=== PATIENT | female | born 1995 | race African-American/Black ===

== ENCOUNTER 2016-06-30 14:06 | Outpatient (CLI) | payer MEDICAID | END 2016-06-30 14:07 | disposition home or self-care (01) | DX: Z36 Encounter for antenatal screening of mother (principal) ==

== ENCOUNTER 2016-07-25 23:40 | Inpatient (IN) | payer MEDICAID ==
[2016-07-26] MEDS ORDERED: SODIUM CHLORIDE FLUSH 0.9% 10 ML SYRINGE IVP ONE ×3 (00:52→20:20)
[2016-07-26] MEDS ORDERED: TERBUTALINE 1 MG/ML VIAL SUBQ ONE (02:03)
[2016-07-26] MEDS: LACTATED RINGERS 1,000 ML IV SCH ×2 (02:57→03:34)
[2016-07-26] MEDS ORDERED: CITRIC ACID/SODIUM CITRATE 15 ML UDC PO ONE (03:09)
[2016-07-26] MEDS ORDERED: LACTATED RINGERS 1,000 ML IV ONE ×2 (04:56→05:25)
[2016-07-26] MEDS ORDERED: MORPHINE PF 5 MG/10 ML AMP EP ONE (05:00)
[2016-07-26] MEDS ORDERED: OXYTOCIN 10 UNIT/ML VIAL IV ONE (05:00)
[2016-07-26] MEDS ORDERED: fentaNYL 250 MCG/5 ML VIAL IVP ONE (05:00)
[2016-07-26] MEDS ORDERED: ONDANSETRON 4 MG/2 ML VIAL IVP ONE (05:00)
[2016-07-26] MEDS ORDERED: KETOROLAC 30 MG/ML VIAL IVP ONE (05:00)
[2016-07-26] MEDS ORDERED: ONDANSETRON 4 MG/2 ML VIAL IVP PRN (05:29)
[2016-07-26] MEDS ORDERED: METOCLOPRAMIDE 10 MG/2 ML VIAL IVP PRN (05:29)
[2016-07-26] MEDS ORDERED: LACTATED RINGERS 1,000 ML IV SCH (06:00)
[2016-07-26] MEDS ORDERED: OXYTOCIN/LACTATED RINGERS 250 ML IV ONE (06:32)
[2016-07-26] MEDS: diphenhydrAMINE INJ 50 MG/ML VIAL IV PRN ×2 (06:41→07:14)
[2016-07-26] MEDS: NALBUPHINE 20 MG/ML AMP IVP PRN ×4 (08:10→20:24)
[2016-07-26] MEDS: OXYTOCIN/LACTATED RINGERS 250 ML IV SCH ×2 (11:42→16:47)
[2016-07-26] MEDS ORDERED: oxyCODONE 5 MG TABLET PO PRN (12:28)
[2016-07-26] MEDS: IBUPROFEN 600 MG TABLET PO SCH ×2 (12:54→17:39)
[2016-07-27] MEDS: IBUPROFEN 600 MG TABLET PO SCH ×6 (00:01→18:56)
[2016-07-27] MEDS: NALBUPHINE 20 MG/ML AMP IVP PRN ×2 (01:32→08:12)
[2016-07-27] MEDS: oxyCODONE 5 MG TABLET PO PRN ×5 (06:31→23:10)
[2016-07-27] MEDS ORDERED: SODIUM CHLORIDE FLUSH 0.9% 10 ML SYRINGE IVP ONE (08:08)
[2016-07-27] MEDS: MAGNESIUM HYDROXIDE 2,400 MG/30 ML UDC PO PRN (08:52)
[2016-07-27] MEDS: diphenhydrAMINE 25 MG CAPSULE PO PRN (16:56)
[2016-07-27] MEDS: DOCUSATE SODIUM 100 MG CAPSULE PO SCH (19:59)
[2016-07-28] MEDS: IBUPROFEN 600 MG TABLET PO SCH ×3 (01:03→13:52)
[2016-07-28] MEDS: oxyCODONE 5 MG TABLET PO PRN ×4 (03:29→15:55)
[2016-07-28] MEDS: DOCUSATE SODIUM 100 MG CAPSULE PO SCH (08:26)
[2016-07-28] MEDS: diphenhydrAMINE 25 MG CAPSULE PO PRN (08:50)
[2016-07-28] MEDS ORDERED: SIMETHICONE CHEW 80 MG TABLET PO PRN (13:12)
[2016-07-28] MEDS: MAGNESIUM HYDROXIDE 2,400 MG/30 ML UDC PO PRN (13:52)
== END 2016-07-28 18:50 | disposition home or self-care (01) | DRG 766 ==
PROC: 10H07YZ Insertion of Other Device into Products of Conception, Via Natural or Artificial Opening (ICD-10-PCS; principal; 2016-07-26 03:04)
PROC: 10D00Z1 Extraction of Products of Conception, Low, Open Approach (ICD-10-PCS; principal; 2016-07-26 03:04)
DX: O77.0 Labor and delivery complicated by meconium in amniotic fluid (principal); O76 Abnormality in fetal heart rate and rhythm complicating labor and delivery; O69.0XX0 Labor and delivery complicated by prolapse of cord, not applicable or unspecified; O36.8130 Decreased fetal movements, third trimester, not applicable or unspecified; O99.02 Anemia complicating childbirth; D64.9 Anemia, unspecified; Z3A.40 40 weeks gestation of pregnancy; Z37.0 Single live birth

== ENCOUNTER 2016-08-12 23:13 | Emergency (ER) | payer MEDICAID | END 2016-08-13 05:27 | disposition home or self-care (01) | DX: R50.9 Fever, unspecified (principal); R10.32 Left lower quadrant pain ==

== ENCOUNTER 2017-06-25 16:11 | Outpatient (CLI) | payer MEDICAID | END 2017-06-25 16:12 | disposition home or self-care (01) | LOC: LAB.R 16:11 | PROVIDERS: ATTEND Registered Nurse | DX: N76.1 Subacute and chronic vaginitis (principal) ==

== ENCOUNTER 2017-06-29 14:21 | Outpatient (CLI) | payer MEDICAID ==
[2017-07-01 18:35] LABS: HSV 2 DNA NOT DETECTED; SOURCE BLOOD
== END 2017-06-29 14:22 | disposition home or self-care (01) ==
LOC: LAB 14:21
PROVIDERS: ATTEND Registered Nurse
DX: N76.1 Subacute and chronic vaginitis (principal)
CPT/HCPCS: 36415; 87529

== ENCOUNTER 2017-07-05 15:32 | Emergency (ER) | payer MEDICAID ==
[2017-07-05 16:01] LABS: BILIRUBIN,URINE NEGATIVE (NEGATIVE); GLUCOSE, URINE (UA) NEGATIVE (NEGATIVE); KETONES,URINE (UA) TRACE mg/dL (NEGATIVE); LEUKOCYTE ESTERASE, URINE LARGE (NEGATIVE); NITRITE,URINE NEGATIVE (NEGATIVE); OCCULT BLOOD,URINE LARGE (NEGATIVE); PH,URINE 6.5 PH (5.0-7.5); PROTEIN,URINE 30 mg/dL (NEGATIVE); UROBILINOGEN,URINE 0.2 (NORMAL) E.U./dL (NORMAL)
[2017-07-05 16:04] LABS: CLARITY,URINE CLOUDY (CLEAR); HCG UR QUAL NEGATIVE
[2017-07-05 16:19] LABS: BACTERIA,URINE Few /HPF (None Seen); MUCUS,URINE Moderate Strands; RBC,URINE TNTC /HPF (0-5); SQUAMOUS EPITHELIAL CELL,UR MOD Squamous (<= Few); WBC CLUMPS,URINE PRESENT
[2017-07-05] MEDS ORDERED: levoFLOXacin 250 MG TABLET PO STA (17:13)
--- NOTE | 2017-07-05 17:15 | ED Physician Documentation ---
History of Present Illness - Stated complaint Stated Complaint: FEM - Chief complaint Chief Complaint: General - History obtained from History obtained from: Patient - History of Present Illness Timing: Other (1 day of burning and dysuria and frequency without flank pain or fevers or nausea.) Review of Systems Constitutional: denies: Fever, Chills Respiratory: denies: Dyspnea, Cough GI: denies: Abdominal Pain, Nausea, Vomiting, Diarrhea PD PAST MEDICAL HISTORY - Past Medical History Cardiovascular: None Respiratory: None Endocrine/Autoimmune: None GI: None : None HEENT: None Psych: None Musculoskeletal: None Derm: None - Past Surgical History Past Surgical History: No Ortho: 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 - Present Medications Home Medications: Ambulatory Orders Medication Instructions Recorded Confirmed Levofloxacin [Levaquin] 250 mg PO DAILY #3 tablet 07/05/17 Voriconazole [Vfend] 200 mg PO BID 07/05/17 07/05/17 - Allergies Allergies/Adverse Reactions: Allergies Allergy/AdvReac Type Severity Reaction Status Date / Time No Known Drug Allergies Allergy Verified 07/05/17 15:51 - Social History Does the pt smoke?: No Smoking Status: Never smoker Does the pt drink ETOH?: No Does the pt have substance abuse?: No - Immunizations Immunizations are current?: Yes - POLST Patient has POLST: No PD ED PE NORMAL - Vitals Vital signs reviewed: Yes - General General: Alert and oriented X 3, No acute distress - Abdomen Abdomen: Soft, Non tender - Back Back: No CVA TTP - Neuro Neuro: Alert and oriented X 3, Normal speech - Psych Psych: Normal mood, Normal affect Results - Vitals Vitals: Vital Signs - 24 hr 07/05/17 15:48 Temperature 36.9 C Heart Rate 88 Respiratory 16 Rate Blood Pressure 105/70 O2 Saturation 98 Oxygen O2 Source Room air - Labs Labs: Laboratory Tests 07/05/17 15:55 Urine Color YELLOW Urine Clarity CLOUDY Urine pH 6.5 Ur Specific [place] 1.025 Urine Protein 30 H Urine Glucose (UA) NEGATIVE Urine Ketones TRACE Urine Occult Blood LARGE H Urine Nitrite NEGATIVE Urine Bilirubin NEGATIVE Urine Urobilinogen 0.2 (NORMAL) Ur Leukocyte Esterase LARGE H Urine RBC TNTC H Urine WBC >25 H Urine WBC Clumps PRESENT Ur Squamous Epith Cells MOD Squamous H Urine Bacteria Few Urine Mucus Moderate Strands Ur Microscopic Review INDICATED Urine Culture Comments NOT INDICATED Urine HCG, Qual NEGATIVE PD MEDICAL DECISION MAKING - ED course ED course: She wanted a qday abx d/t no pharmacies open today. Departure - Departure Disposition: 01 Home, Self Care Clinical Impression: Cystitis Condition: Good Record reviewed to determine appropriate education?: Yes Instructions: ED UTI Cystitis Female Prescriptions: Levofloxacin [Levaquin] 250 mg PO DAILY #3 tablet Comments: Return if worse, especially if you develop increasing flank pain, fevers, or cannot keep down the medication.
[2017-07-05 17:42] VITALS: BP 108/72
== END 2017-07-05 17:30 | disposition home or self-care (01) ==
LOC: ED 15:32
DX: N30.90 Cystitis, unspecified without hematuria (principal)
CPT/HCPCS: 81001; 81025; 99283; A9270; 81003; 87086

== ENCOUNTER 2017-07-07 18:38 | Outpatient (CLI) | payer MEDICAID | END 2017-07-07 18:39 | disposition home or self-care (01) | LOC: LAB.R 18:38 | PROVIDERS: ATTEND Registered Nurse | DX: N76.1 Subacute and chronic vaginitis (principal); R80.9 Proteinuria, unspecified | CPT/HCPCS: 87086 ==

== ENCOUNTER 2017-07-13 13:14 | Outpatient (CLI) | payer MEDICAID ==
[2017-07-15 11:27] LABS: HSV 1 IGG TYPE SPECIFIC AB 10.2 index; HSV 2 IGG TYPE SPECIFIC AB 4.78 index
== END 2017-07-13 13:15 | disposition home or self-care (01) ==
LOC: LAB 13:14
PROVIDERS: ATTEND Registered Nurse
DX: N76.1 Subacute and chronic vaginitis (principal)
CPT/HCPCS: 36415; 81599; 86695; 86696

== ENCOUNTER 2017-08-06 08:00 | Outpatient (CLI) | payer MEDICAID | END 2017-08-06 08:01 | disposition home or self-care (01) | LOC: LAB.R 08:00 | PROVIDERS: ATTEND Registered Nurse | DX: R30.0 Dysuria (principal) | CPT/HCPCS: 87086; 87491; 87591 ==

== ENCOUNTER 2017-09-26 17:41 | Emergency (ER) | payer MEDICAID ==
[2017-09-26 18:12] LABS: BILIRUBIN,URINE NEGATIVE (NEGATIVE); GLUCOSE, URINE (UA) 100 mg/dL (NEGATIVE); KETONES,URINE (UA) TRACE mg/dL (NEGATIVE); LEUKOCYTE ESTERASE, URINE LARGE (NEGATIVE); NITRITE,URINE POSITIVE (NEGATIVE); OCCULT BLOOD,URINE LARGE (NEGATIVE); PH,URINE 5.5 PH (5.0-7.5); PROTEIN,URINE 30 mg/dL (NEGATIVE); UROBILINOGEN,URINE 2 E.U./dL (NORMAL)
--- NOTE | 2017-09-26 18:17 | ED Physician Documentation ---
PD HPI FEMALE - Stated complaint Stated Complaint: FEMALE - Chief complaint Chief Complaint: UTI - History obtained from History obtained from: Patient - History of Present Illness Timing - onset: Other (Few days of dysuria associated with hematuria and frequency, she has a history of UTIs. No flank pain or nausea. 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, Dilation and currettage - Present Medications Home Medications: Ambulatory Orders Medication Instructions Recorded Confirmed Phenazopyridine HCl [Pyridium] 200 mg PO TID #6 tablet 09/26/17 Sulfamethoxazole/Trimethoprim 1 each PO BID 5 Days #10 tablet 09/26/17 [Sulfamethoxazole-Tmp Ds Tablet] - Allergies Allergies/Adverse Reactions: Allergies Allergy/AdvReac Type Severity Reaction Status Date / Time No Known Drug Allergies Allergy Verified 09/26/17 17:49 - Social History Does the pt smoke?: No Smoking Status: Never smoker Does the pt drink ETOH?: Yes Does the pt have substance abuse?: No - Immunizations Immunizations are current?: Yes - POLST Patient has POLST: No PD ED PE NORMAL - Vitals Vital signs reviewed: Yes - General General: Alert and oriented X 3, No acute distress - Abdomen Abdomen: Normal bowel sounds, Soft, Non tender - Back Back: No CVA TTP, No spinal TTP - Neuro Neuro: Alert and oriented X 3, Normal speech - Psych Psych: Normal mood, Normal affect Results - Vitals Vitals: Vital Signs - 24 hr 09/26/17 17:45 Temperature 36.6 C Heart Rate 70 Respiratory 14 Rate Blood Pressure 118/71 O2 Saturation 99 Oxygen O2 Source Room air - Labs Labs: Laboratory Tests 09/26/17 18:04 Urine Color ORANGE Urine Clarity CLEAR Urine pH 5.5 Ur Specific [place] 1.025 Urine Protein 30 H Urine Glucose (UA) 100 H Urine Ketones TRACE Urine Occult Blood LARGE H Urine Nitrite POSITIVE H Urine Bilirubin NEGATIVE Urine Urobilinogen 2 H Ur Leukocyte Esterase LARGE H Urine RBC 11-25 H Urine WBC >25 H Ur Squamous Epith Cells FEW Squamous Urine Bacteria Few Ur Microscopic Review INDICATED Urine Culture Comments INDICATED Urine HCG, Qual NEGATIVE Departure - Departure Disposition: 01 Home, Self Care Clinical Impression: Cystitis Condition: Good Record reviewed to determine appropriate education?: Yes Instructions: ED UTI Cystitis Female Prescriptions: Phenazopyridine HCl [Pyridium] 200 mg PO TID #6 tablet Sulfamethoxazole/Trimethoprim [Sulfamethoxazole-Tmp Ds Tablet] 1 each PO BID 5 Days #10 tablet Comments: Call your doctor to arrange a follow-up appointment, make the next available appointment. In the interim, return anytime if worse or if new symptoms develop. We will culture your urine, the results should be done in 48-72 hours. If an antibiotic change is necessary we will call you. Return if worse in the meantime, especially if you develop increasing flank pain, fevers, or cannot keep down the medication.
[2017-09-26 18:19] LABS: CLARITY,URINE CLEAR (CLEAR); HCG UR QUAL NEGATIVE
[2017-09-26 18:23] LABS: BACTERIA,URINE Few /HPF (None Seen); SQUAMOUS EPITHELIAL CELL,UR FEW Squamous (<= Few)
[2017-09-26] MEDS ORDERED: SULFAMETH/TRIMETH DS 800/160 MG TABLET PO STA (18:31)
[2017-09-26 18:48] VITALS: BP 115/65
== END 2017-09-26 18:48 | disposition home or self-care (01) ==
LOC: ED 17:41
DX: N30.90 Cystitis, unspecified without hematuria (principal)
CPT/HCPCS: 81001; 81025; 87086; 99283; A9270; 81003

== ENCOUNTER 2017-12-21 08:00 | Outpatient (CLI) | payer MEDICAID ==
[2017-12-21 18:53] LABS: BUN - BLOOD UREA NITROGEN 14 mg/dL (6-20); CALCIUM 8.7 mg/dL (8.5-10.3); CARBON DIOXIDE - CO2 26 mmol/L (21-32); CHLORIDE 102 mmol/L (101-111); CREATININE 0.9 mg/dL (0.4-1.0); GFR - MDRD 93 (>89); GLUCOSE 98 mg/dL (70-100); SODIUM 136 mmol/L (135-145)
[2017-12-21 19:02] LABS: BASOPHILS % (AUTO) 0.5 %; EOSINOPHILS # (AUTO) 0.1 10^3/uL (0.0-0.7); EOSINOPHILS % (AUTO) 1.9 %; HGB - HEMOGLOBIN 12.3 g/dL (12.0-16.0); LYMPHOCYTES % (AUTO) 45.6 %; MEAN CORPUSCULAR HEMOGLOBIN 28.6 pg (27.0-31.0); MEAN CORPUSCULAR HGB CONC 31.9 g/dL (32.0-36.0); MEAN CORPUSCULAR VOLUME 89.8 fL (81.0-99.0); MONOCYTES # (AUTO) 0.3 10^3/uL (0.0-1.0); MONOCYTES % (AUTO) 6.1 %; NEUTROPHILS % (AUTO) 45.9 %; PLT - PLATELET COUNT 254 10^3/uL (130-450); RED BLOOD COUNT 4.29 10^6/uL (4.20-5.40); WHITE BLOOD COUNT 4.4 x10^3/uL (4.8-10.8)
== END 2017-12-21 08:01 | disposition home or self-care (01) ==
LOC: LAB.N 08:00
PROVIDERS: ATTEND Physician Assistant Medical
DX: Z00.00 Encounter for general adult medical examination without abnormal findings (principal); D64.9 Anemia, unspecified; N30.90 Cystitis, unspecified without hematuria
CPT/HCPCS: 36415; 80048; 84443; 85025

== ENCOUNTER 2018-03-15 08:00 | Outpatient (CLI) | payer MEDICAID | END 2018-03-15 08:01 | disposition home or self-care (01) | LOC: LAB.R 08:00 | PROVIDERS: ATTEND Nurse Practitioner Obstetrics & Gynecology | DX: Z11.3 Encounter for screening for infections with a predominantly sexual mode of transmission (principal) | CPT/HCPCS: 87491; 87591 ==

== ENCOUNTER 2018-04-05 08:00 | Outpatient (CLI) | payer MEDICAID | END 2018-04-05 08:01 | disposition home or self-care (01) | LOC: LAB.R 08:00 | PROVIDERS: ATTEND Registered Nurse | DX: Z11.3 Encounter for screening for infections with a predominantly sexual mode of transmission (principal) | CPT/HCPCS: 87491; 87591 ==

== ENCOUNTER 2018-06-25 20:34 | Emergency (ER) | payer MEDICAID ==
[2018-06-25 20:54] VITALS: BP 111/71
--- NOTE | 2018-06-25 21:13 | ED Physician Documentation ---
PD HPI FEMALE - Stated complaint Stated Complaint: FEMALE - Chief complaint Chief Complaint: UTI - History obtained from History obtained from: Patient - History of Present Illness Timing - onset: Other (Urinary frequency and dysuria mostly tonight without flank pain or fevers.) Review of Systems Constitutional: denies: Fever, Chills GI: reports: Nausea. 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 - Present Medications Home Medications: Ambulatory Orders Medication Instructions Recorded Confirmed Acyclovir 500 mg PO DAILY 06/25/18 06/25/18 Nitrofurantoin Monohyd/M-Cryst 100 mg PO BID #10 capsule 06/25/18 [Macrobid 100 mg Capsule] - Allergies Allergies/Adverse Reactions: Allergies Allergy/AdvReac Type Severity Reaction Status Date / Time No Known Drug Allergies Allergy Verified 06/25/18 20:50 - Social History Does the pt smoke?: No Smoking Status: Never smoker Does the pt drink ETOH?: Yes Does the pt have substance abuse?: No - Immunizations Immunizations are current?: Yes - POLST Patient has POLST: No PD ED PE NORMAL - Vitals Vital signs reviewed: Yes - General General: Alert and oriented X 3, No acute distress - Abdomen Abdomen: Normal bowel sounds, Soft, Non tender - Back Back: No CVA TTP - Neuro Neuro: Alert and oriented X 3, Normal speech Results - Vitals Vitals: Vital Signs - 24 hr 06/25/18 20:48 Temperature 36.6 C Heart Rate 73 Respiratory 16 Rate Blood Pressure 111/71 O2 Saturation 100 Oxygen O2 Source Room air - Labs Labs: Laboratory Tests 06/25/18 20:40 Urine Color YELLOW Urine Clarity CLEAR Urine pH 5.5 Ur Specific [place] >=1.030 H Urine Protein NEGATIVE Urine Glucose (UA) NEGATIVE Urine Ketones NEGATIVE Urine Occult Blood TRACE-INTA Urine Nitrite POSITIVE H Urine Bilirubin NEGATIVE Urine Urobilinogen 1 (NORMAL) Ur Leukocyte Esterase TRACE H Ur Microscopic Review INDICATED Urine Culture Comments Not Reportable Urine HCG, Qual NEGATIVE Departure - Departure Disposition: Home, Self Care Clinical Impression: Cystitis Condition: Good Record reviewed to determine appropriate education?: Yes Instructions: ED UTI Cystitis Female Prescriptions: Nitrofurantoin Monohyd/M-Cryst [Macrobid 100 mg Capsule] 100 mg PO BID #10 capsule Comments: We will culture your urine, the results should be done in 48-72 hours. If an antibiotic change is necessary we will call you. Return if worse in the meantime, especially if you develop increasing flank pain, fevers, or cannot keep down the medication.
[2018-06-25 21:24] LABS: BILIRUBIN,URINE NEGATIVE (NEGATIVE); GLUCOSE, URINE (UA) NEGATIVE (NEGATIVE); KETONES,URINE (UA) NEGATIVE (NEGATIVE); LEUKOCYTE ESTERASE, URINE TRACE (NEGATIVE); NITRITE,URINE POSITIVE (NEGATIVE); OCCULT BLOOD,URINE TRACE-INTA (NEGATIVE); PH,URINE 5.5 PH (5.0-7.5); PROTEIN,URINE NEGATIVE (NEGATIVE); UROBILINOGEN,URINE 1 (NORMAL) E.U./dL (NORMAL)
[2018-06-25 21:26] LABS: CLARITY,URINE CLEAR (CLEAR)
[2018-06-25 21:27] LABS: HCG UR QUAL NEGATIVE
[2018-06-25] MEDS ORDERED: NITROFURANTOIN MACRO 100 MG CAPSULE PO STA (21:28)
[2018-06-25 21:38] LABS: BACTERIA,URINE Few /HPF (None Seen); RBC,URINE 0-5 /HPF (0-5); SQUAMOUS EPITHELIAL CELL,UR MANY Squamous (<= Few)
== END 2018-06-25 21:35 | disposition home or self-care (01) ==
LOC: ED 20:34
DX: N30.90 Cystitis, unspecified without hematuria (principal)
CPT/HCPCS: 81001; 81025; 87086; 99283; A9270; 81003

== ENCOUNTER 2018-08-31 08:00 | Outpatient (CLI) | payer MEDICAID ==
[2018-08-31 20:04] LABS: BILIRUBIN,URINE NEGATIVE (NEGATIVE); GLUCOSE, URINE (UA) NEGATIVE (NEGATIVE); KETONES,URINE (UA) NEGATIVE (NEGATIVE); LEUKOCYTE ESTERASE, URINE NEGATIVE (NEGATIVE); NITRITE,URINE NEGATIVE (NEGATIVE); OCCULT BLOOD,URINE NEGATIVE (NEGATIVE); PH,URINE 6.5 PH (5.0-7.5); PROTEIN,URINE NEGATIVE (NEGATIVE); UROBILINOGEN,URINE 0.2 (NORMAL) E.U./dL (NORMAL)
[2018-08-31 20:34] LABS: CLARITY,URINE CLEAR (CLEAR); RBC,URINE 0-5 /HPF (0-5)
[2018-08-31 20:35] LABS: BACTERIA,URINE None Seen /HPF (None Seen); SQUAMOUS EPITHELIAL CELL,UR MANY Squamous (<= Few)
== END 2018-08-31 23:59 | disposition home or self-care (01) ==
LOC: LAB.R 08:00
PROVIDERS: ATTEND Physician Assistant Medical
DX: Q64.9 Congenital malformation of urinary system, unspecified (principal)
CPT/HCPCS: 81001; 87086

== ENCOUNTER 2018-09-28 21:18 | Outpatient (CLI) | payer MEDICAID ==
--- NOTE | 2018-09-28 22:50 | Ultrasound Report ---
Reason: PELVIC PAIN Procedure Date: 09/28/2018 Accession Number: [id number] / [id number] Procedure: US - Pelvic w/Transvaginal CPT Code: FULL RESULT: EXAM: PELVIC ULTRASOUND EXAM DATE: 09/28/2018 09:46 PM. CLINICAL HISTORY: PELVIC PAIN. COMPARISON: None. TECHNIQUE: Realtime transabdominal pelvic scan performed to identify the uterus and adnexa and as an overview of other pelvic structures, followed by transvaginal scan to provide greater detail of the uterus and adnexa, with static image documentation. FINDINGS: Uterus: 9.0 x 4.4 x 6.2 cm, volume 128 cc. Anteverted position. Normal overall size and echotexture. Masses: None. Endometrium: 8 mm. Normal. Cervix: Small amount of fluid in the endocervical canal. Right Ovary: 5.1 x 3.1 x 3.4 cm, volume 29 cc. Complex cyst measuring 3.2 x 2.9 x 2.7 cm. Normal Doppler flow signal. Left Ovary: 3.9 x 2.4 x 2.7 cm, volume 13 cc. Small cyst measuring 2.1 x 1.3 x 2.0 cm. Normal Doppler flow signal. Free Fluid: None. Other: None. IMPRESSION: 1. Enlarged right ovary measuring 29 cc with mildly complex, presumably hemorrhagic cyst measuring 3 cm. No torsion seen. 2. Mildly prominent left ovary measuring 13 cc with small cyst measuring 2 cm. No torsion seen. [facility]
== END 2018-09-28 21:19 | disposition home or self-care (01) ==
LOC: DI 21:18
PROVIDERS: ATTEND Registered Nurse
DX: N83.291 Other ovarian cyst, right side (principal); N83.202 Unspecified ovarian cyst, left side
CPT/HCPCS: 76830; 76856

== ENCOUNTER 2018-11-15 15:18 | Outpatient (CLI) | payer MEDICAID ==
--- NOTE | 2018-11-16 00:51 | Ultrasound Report ---
Reason: PELVIC PAIN Procedure Date: 11/15/2018 Accession Number: [id number] / [id number] Procedure: US - Pelvic w/Transvaginal CPT Code: FULL RESULT: EXAM: PELVIC ULTRASOUND EXAM DATE: 11/15/2018 04:15 PM. CLINICAL HISTORY: PELVIC PAIN. COMPARISON: PELVIC W/TRANSVAGINAL 09/28/2018 9:27 PM. TECHNIQUE: Realtime transabdominal pelvic scan performed to identify the uterus and adnexa and as an overview of other pelvic structures, followed by transvaginal scan to provide greater detail of the uterus and adnexa, with static image documentation. FINDINGS: Uterus: 8.5 x 3.9 x 5.2 cm, volume 90.2 cc. Anteverted position. Normal overall size and echotexture. Masses: None. Endometrium: 3 mm. No focal endometrial abnormalities. Cervix: Unremarkable. Right Ovary: 3.2 x 2.0 x 1.8 cm, volume 6 cc. Normal echotexture and blood flow. Left Ovary: 3.3 x 1.8 x 2.4 cm, volume 7.5 cc. Normal echotexture and blood flow. Free Fluid: None. Other: None. IMPRESSION: No acute abnormalities. Resolution of previously seen complex right ovarian cyst. [facility]
== END 2018-11-15 15:19 | disposition home or self-care (01) ==
LOC: DI 15:18
PROVIDERS: ATTEND Registered Nurse
DX: R10.2 Pelvic and perineal pain (principal)
CPT/HCPCS: 76830; 76856

== ENCOUNTER 2019-03-24 08:00 | Outpatient (CLI) | payer MEDICAID ==
[2019-03-24 21:59] LABS: TRICHOMONAS VAGINALIS DNA NEGATIVE (NEGATIVE)
[2019-03-24 22:48] LABS: CANDIDA GROUP DNA POSITIVE (NEGATIVE); CANDIDA KRUSEI DNA NEGATIVE (NEGATIVE); TRICHOMONAS VAGINALIS DNA NEGATIVE (NEGATIVE)
== END 2019-03-24 23:59 ==
LOC: LAB.R 08:00
PROVIDERS: ATTEND Nurse Practitioner Obstetrics & Gynecology
DX: L29.3 Anogenital pruritus, unspecified (principal)
CPT/HCPCS: 87491; 87591; 87661; 87801

== ENCOUNTER 2019-05-02 08:00 | Outpatient (CLI) | payer MEDICAID ==
[2019-05-02 20:26] LABS: CANDIDA GROUP DNA POSITIVE (NEGATIVE); CANDIDA KRUSEI DNA NEGATIVE (NEGATIVE); TRICHOMONAS VAGINALIS DNA NEGATIVE (NEGATIVE)
[2019-05-02 21:15] LABS: TRICHOMONAS VAGINALIS DNA NEGATIVE (NEGATIVE)
== END 2019-05-02 23:59 | disposition home or self-care (01) ==
LOC: LAB.R 08:00
PROVIDERS: ATTEND Nurse Practitioner Obstetrics & Gynecology
DX: Z11.3 Encounter for screening for infections with a predominantly sexual mode of transmission (principal); L29.8 Other pruritus
CPT/HCPCS: 87491; 87591; 87661; 87801

== ENCOUNTER 2019-05-02 09:17 | Outpatient (CLI) | payer MEDICAID ==
[2019-05-03 13:00] LABS: HEPATITIS C ANTIBODY NON-REACTIVE (NON-REACTIVE)
[2019-05-03 13:32] LABS: HIV AG/AB 4TH GEN NON-REACTIVE (NON-REACTIVE)
[2019-05-04 12:03] LABS: HSV 1 IGG TYPE SPECIFIC AB 23.8 index; HSV 2 IGG TYPE SPECIFIC AB 5.34 index
== END 2019-05-02 09:18 | disposition home or self-care (01) ==
LOC: LAB 09:17
PROVIDERS: ATTEND Nurse Practitioner Obstetrics & Gynecology
DX: Z11.3 Encounter for screening for infections with a predominantly sexual mode of transmission (principal)
CPT/HCPCS: 36415; 81599; 86592; 86695; 86696; 86803; 87389; 87491; 87591; 87661; 87801

== ENCOUNTER 2019-08-16 08:00 | Outpatient (CLI) | payer MEDICAID ==
[2019-08-16 21:27] LABS: CANDIDA GROUP DNA NEGATIVE (NEGATIVE); CANDIDA KRUSEI DNA NEGATIVE (NEGATIVE); TRICHOMONAS VAGINALIS DNA NEGATIVE (NEGATIVE)
== END 2019-08-16 23:59 | disposition home or self-care (01) ==
LOC: LAB.R 08:00
PROVIDERS: ATTEND Nurse Practitioner Obstetrics & Gynecology
DX: N76.0 Acute vaginitis (principal)
CPT/HCPCS: 87661; 87801